=== PATIENT | female | born 1955 | race Caucasian/White ===

== ENCOUNTER 2018-06-19 12:49 | Inpatient (IN) ==
[2018-06-19] MEDS ORDERED: Sod Chloride 0.9% Inj 1,000 ML IV.SIG SCH (13:15)
--- NOTE | 2018-06-19 13:17 | ED ---
HPI General Chief Complaint: Fall Stated Complaint: Fall Time Seen by Provider: 06/19/18 12:56 Source: patient and EMS Mode of arrival: EMS Limitations: other (alcohol) History of Present Illness HPI Narrative: 62 yo female with a history of osteoporosis and alcohol use presents with a 12 hour history of left groin pain after a fall last night. Patient states she stepped outside her house and tripped on a rug on her patio, falling on her left side on tile floor. Patient took ibuprofen at night, applied ice to area and was able to sleep but awoke with 8/10 pain this morning. Pain exacerbated by movement of left leg, unable to bear weight. Some initial tingling and numbness running down left leg now resolved. Patient endorses drinking some alcohol last night prior to episode, "a couple vodka mixed drinks." Also had a drink this morning prior to presenting. States that she regularly drinks about 3 mixed drinks 5 days a week. She has a history of osteoporosis for which she takes Calcium supplements. Came by [facility] for evaluation of this. Related Data Home Medications Medication Instructions Recorded Confirmed multivitamin [Multiple Vitamins] 1 tab PO DAILY 06/19/18 06/19/18 Allergies Allergy/AdvReac Type Severity Reaction Status Date / Time No Known Allergies Allergy Verified 06/19/18 13:02 Review of Systems ROS: all other systems reviewed are negative Constitutional Denies fever(s) and Denies weakness Cardiovascular Denies chest pain, Denies syncope, Denies pedal edema and Denies leg edema Respiratory Denies dyspnea Gastrointestinal Denies abdominal pain Musculoskeletal Reports limited range of motion, Denies numbness, Reports radiating pain into limb and Denies tingling Neurologic Denies numbness Psychiatric Reports anxiety [facility] Medical History Medical History Osteoporosis (Acute) Surgical History Surgical History No history of previous surgery (Acute) Family History Family History Father Cancer Social History Social History Substance History: No History of Abuse Smoking Status: Heavy tobacco smoker Tobacco Type: Cigarettes How Often Do You Have a Drink Containing Alcohol: 4 or more times a week Recent Travel in [facility] within the Last 8 Weeks: No Recent Out of Country Travel within the Last 8 Weeks: No Immunization History Tetanus Immunization: Unsure Exam Const General: acute distress mild, anxious and intoxicated appearing Orientation: alert, awake and oriented x3 HENMT Head: normocephalic and atraumatic Nose: no nasal discharge and no epistaxis Mouth: moist mucous membranes Eyes Sclera: normal sclerae Pupils: PERRL Neck Neck: trachea midline and no JVD Resp Effort & Inspection: no use of accessory muscles Auscultation: clear to auscultation bilaterally Cardio Rate: regular rate Rhythm: regular rhythm Heart Sounds: no murmurs GI Inspection: non-distended Palpation: soft, no hepatosplenomegaly and nontender Skin General: dry skin (warm) Neuro General: alert and awake Cranial Nerves: other Speech: speech normal Motor: no movement abnormalities noted Extrem General: normal to inspection, no clubbing, no cyanosis and no edema Left lower extremity: hip/thigh Details: tenderness and abnormal ROM Details: pain with active ROM Details: with flexion Psych Mood: irritable mood Affect: irritable affect Judgment: judgment good Course Initial Documented Vital Signs Temperature 98.7 F 06/19/18 12:59 Pulse Rate 97 H 06/19/18 12:59 Respiratory Rate 16 06/19/18 12:59 Blood Pressure 181/127 H 06/19/18 12:59 Pulse Oximetry 97 06/19/18 12:59 Last Documented Vital Signs Temperature 98.7 F 06/19/18 12:59 Pulse Rate 87 06/19/18 13:42 Respiratory Rate 15 06/19/18 13:42 Blood Pressure 171/98 H 06/19/18 13:42 Pulse Oximetry 99 06/19/18 13:42 Medical Decision Making [facility] Narrative Medical decision making narrative: 62-year-old female that presents to the ED for evaluation of fall and alcohol intoxication. Patient was properly examined and was found to have signs and symptoms very concerning for fracture. Imaging and labs ordered. CIWA was started as patient does state having a very substantial history of alcohol use. Labs and imaging were essentially positive for alcohol as well as hip fracture. Case discussed with my attending who agrees with plan. Medical team was paged. Patient was admitted to Dr. Michel who agrees admission to her service. Consult placed to orthopedic surgeon. Medical Screen Exam Complete: Yes Emergency Medical Condition: Yes Differential Diagnosis Differential Diagnosis: Hip fracture versus bruise versus contusion versus alcohol intoxication versus inability to walk Medical Records Medical records reviewed: Yes I reviewed the patient's medical records. Lab Data Lab results reviewed: Yes I reviewed the patient's lab results. Result diagrams: 06/19/18 13:05 06/19/18 13:05 Lab Results 06/19/18 06/19/18 06/19/18 Range/Units 12:58 13:05 13:05 WBC 10.6 (4.0-11.0) th/mm3 RBC 4.67 (4.00-5.30) mil/mm3 Hgb 14.7 (11.6-15.3) gm/dL Hct 43.7 (35.0-46.0) % MCV 93.4 (80.0-100.0) fL MCH 31.5 (27.0-34.0) pg MCHC 33.8 (32.0-36.0) % RDW 14.2 (11.6-17.2) % Plt Count 271 (150-450) th/mm3 MPV 7.8 (7.0-11.0) fL Neut % (Auto) 73.0 H (16.0-70.0) % Lymph % (Auto) 19.0 (9.0-44.0) % [place] % (Auto) 7.3 (0.0-8.0) % Eos % (Auto) 0.2 (0.0-4.0) % Baso % (Auto) 0.5 (0.0-2.0) % Neut # (Auto) 7.8 H (1.8-7.7) th/mm3 Lymph # (Auto) 2.0 (1.0-4.8) th/mm3 [place] # (Auto) 0.8 (0.0-0.9) th/mm3 Eos # (Auto) 0.0 (0.0-0.4) th/mm3 Baso # (Auto) 0.0 (0.0-0.2) th/mm3 WBC Differential . Differential Comment Auto diff final PT 10.0 (9.8-11.6) sec INR 1.0 Ratio APTT 25.7 (24.3-30.1) sec POC Glucose 89 (68-110) mg/dl Urine Color (Yellw/Straw) Urine Clarity (Clear) Urine pH (5.0-8.5) Ur Specific [place] (1.002-1.035) Urine Protein (Neg-Trace) mg/dL Urine Glucose (UA) (Negative) mg/dL Urine Ketones (Negative) mg/dL Urine Occult Blood (Negative) Urine Nitrate (Negative) Urine Bilirubin (Negative) Urine Urobilinogen (Less than 2) mg/dL Ur Leukocyte Esterase (Negative) Urine WBC (0-5) /hpf Ur Squamous Epith Cells (0-5) /hpf Urine Bacteria (None) /hpf Micro UA Comment Ur Microscopic Review Urine Culture Comments 06/19/18 Range/Units 13:15 WBC (4.0-11.0) th/mm3 RBC (4.00-5.30) mil/mm3 Hgb (11.6-15.3) gm/dL Hct (35.0-46.0) % MCV (80.0-100.0) fL MCH (27.0-34.0) pg MCHC (32.0-36.0) % RDW (11.6-17.2) % Plt Count (150-450) th/mm3 MPV (7.0-11.0) fL Neut % (Auto) (16.0-70.0) % Lymph % (Auto) (9.0-44.0) % [place] % (Auto) (0.0-8.0) % Eos % (Auto) (0.0-4.0) % Baso % (Auto) (0.0-2.0) % Neut # (Auto) (1.8-7.7) th/mm3 Lymph # (Auto) (1.0-4.8) th/mm3 [place] # (Auto) (0.0-0.9) th/mm3 Eos # (Auto) (0.0-0.4) th/mm3 Baso # (Auto) (0.0-0.2) th/mm3 WBC Differential Differential Comment PT (9.8-11.6) sec INR Ratio APTT (24.3-30.1) sec POC Glucose (68-110) mg/dl Urine Color Straw (Yellw/Straw) Urine Clarity Clear (Clear) Urine pH 6.0 (5.0-8.5) Ur Specific [place] 1.001 L (1.002-1.035) Urine Protein Negative (Neg-Trace) mg/dL Urine Glucose (UA) Negative (Negative) mg/dL Urine Ketones Negative (Negative) mg/dL Urine Occult Blood Moderate H (Negative) Urine Nitrate Negative (Negative) Urine Bilirubin Negative (Negative) Urine Urobilinogen Less than 2 (Less than 2) mg/dL Ur Leukocyte Esterase Negative (Negative) Urine WBC Less than 1 (0-5) /hpf Ur Squamous Epith Cells <1 (0-5) /hpf Urine Bacteria Rare H (None) /hpf Micro UA Comment Culture not ind Ur Microscopic Review Not Reportable Urine Culture Comments Culture not ind Imaging Data Attestation: I personally reviewed and interpreted this imaging study as follows : Radiologist's impression: Chest X-Ray 06/19/18 12:57 CONCLUSION: 1. Mild interstitial prominence of unknown chronicity given lack of prior exams. 2. Otherwise, no acute abnormality. Hip X-Ray 06/19/18 12:57 CONCLUSION: 1. Left femoral intertrochanteric fracture. Discharge Plan Discharge Disposition Patient Disposition: 30 Still Patient Discharge Details Diagnosis: Closed hip fracture, Alcohol abuse Physicians Team ED Provider: Fan Ornelas ED Midlevel Provider: Vadim Govea Primary Care Provider: Primary Care Socorro Wood Other Providers: Beronica Michaels Rxs /Orders / Referrals /Forms Prescriptions: No Action multivitamin [Multiple Vitamins] Tablet 1 tab PO DAILY RF: 0 Discharge Interventions Interventions: Vital Signs Last Done: 06/19/18 13:42 Status ED Status: Admitted Patient
[2018-06-19 13:23] LABS: Baso % (Auto) 0.5 % (0.0-2.0); Eos % (Auto) 0.2 % (0.0-4.0); Hematocrit 43.7 % (35.0-46.0); Hemoglobin 14.7 gm/dL (11.6-15.3); Mean Corpuscular HGB Conc 33.8 % (32.0-36.0); Mean Corpuscular Hemoglobin 31.5 pg (27.0-34.0); Mean Corpuscular Volume 93.4 fL (80.0-100.0); Mean Platelet Volume 7.8 fL (7.0-11.0); Mono # (Auto) 0.8 th/mm3 (0.0-0.9); Mono % (Auto) 7.3 % (0.0-8.0); Neut # (Auto) 7.8 th/mm3 (1.8-7.7); Platelet Count 271 th/mm3 (150-450); Red Blood Count 4.67 mil/mm3 (4.00-5.30); Red Cell Distribution Width 14.2 % (11.6-17.2); White Blood Count 10.6 th/mm3 (4.0-11.0)
[2018-06-19 13:31] LABS: Activated Partial Thrombo Time 25.7 sec (24.3-30.1)
--- NOTE | 2018-06-19 13:40 | XR ---
EXAM DATE: 06/19/2018 12:57 PM EDT AGE/SEX: 62 years / Female INDICATIONS: Congestion CLINICAL DATA: This is the patient's initial encounter. Patient reports that signs and symptoms have been present for 1 day and indicates a pain score of 0/10. MEDICAL/SURGICAL HISTORY: None. None. COMPARISON: POI, XR SPINE THORACIC AP/LAT AND SWIMMERS, 07/07/2017. . FINDINGS: Mild diffuse interstitial prominence. No significant focal pleural or parenchymal opacities. The card iomediastinal contours are unremarkable. Healed left-sided rib fractures. Osseous structures are int act. CONCLUSION: 1. Mild interstitial prominence of unknown chronicity given lack of prior exams. 2. Otherwise, no acute abnormality. Electronically signed by: Jamal Rojas MD 06/19/2018 1:38 PM EDT
--- NOTE | 2018-06-19 13:41 | XR ---
EXAM DATE: 06/19/2018 12:57 PM EDT AGE/SEX: 62 years / Female INDICATIONS: Left hip pain, fell CLINICAL DATA: This is the patient's initial encounter. Patient reports that signs and symptoms have been present for 2 days and indicates a pain score of 8/10. MEDICAL/SURGICAL HISTORY: None. None. COMPARISON: No prior exams available for comparison. FINDINGS: Nondisplaced intertrochanteric fracture of the left femur. [id number] degenerative changes abou t the left hip. Joints are intact. Osseous density is normal. Soft tissues are unremarkable. No ra diopaque foreign bodies seen. CONCLUSION: 1. Left femoral intertrochanteric fracture. Electronically signed by: Jamal Rojas MD 06/19/2018 1:39 PM EDT
[2018-06-19] MEDS ORDERED: LORazepam 1 MG Tablet PO PRN (13:43)
[2018-06-19] MEDS ORDERED: Haloperidol Inj 5 MG/ML Ampul IV.PUSH PRN (13:43)
[2018-06-19 14:31] LABS: Bacteria,Urine Rare /hpf; Bilirubin,Urine Negative (Negative); Clarity,Urine Clear (Clear); Color,Urine Straw (Yellw/Straw); Glucose,Urine (UA) Negative (Negative); Leukocyte Esterase,Urine Negative (Negative); Nitrite,Urine Negative (Negative); Specific Gravity,Urine 1.001 (1.002-1.035); Squamous Epithelial Cell,Urine <1 /hpf (0-5)
[2018-06-19] MEDS ORDERED: Bisacodyl 10 MG Supp RECTAL PRN (14:59)
[2018-06-19] MEDS ORDERED: Acetaminophen 325 MG Tablet PO PRN (14:59)
[2018-06-19] MEDS ORDERED: Naloxone Inj 0.4 MG/ML Vial IV.PUSH PRN (14:59)
[2018-06-19] MEDS ORDERED: Sodium Chloride 0.9% 2 ML Flush PRN IV.FLUSH (15:08)
--- NOTE | 2018-06-19 15:40 | P.HPIM ---
[facility] No Primary Care Physician Chief Complaint: Left groan pain History of Present Illness: 62 year old white female with no significant past medical history presents to the ED with left groin pain with inability to ambulate after she sustained a mechanical fall after tripping outside on a rug while going outside to smoke a cigarette yesterday. She did not hit her head or lose consciousness and fell to her left side. Since the fall, she has not been able to ambulate and has had severe left groan pain. Prior to the fall, she has no previous complaints. She has no symptoms of chest pain or shortness of breath. She had no history of constipation or any blood in her stools. She has been relatively healthy up to this point. - Diagnosis (1) Closed intertrochanteric fracture of femur Review of Systems All other systems reviewed negative except as stated in HPI [facility] - History History Provided By: Family Member, Network Systems Consultant / EMT - Medical History Medical History: Medical History (Last Reviewed 06/19/18 @ 15:36 by Luiza Michel MD) Osteoporosis - Surgical History Surgical History: Surgical History (Last Reviewed 06/19/18 @ 15:36 by Luiza Michel MD) No history of previous surgery - Family History Family History: Family History (Last Updated 06/19/18 @ 15:37 by Luiza Michel MD) Father Cancer - Social History I have reviewed the patient's Social History: Yes - Tobacco History Tobacco Use In Past 30 Days: Yes Smoking Status: Heavy tobacco smoker Tobacco Type: Cigarettes Packs Per Day: 1.5 - Alcohol History How Often Do You Have a Drink Containing Alcohol: 4 or more times a week - Substance Use History Substance History: No History of Abuse - Travel History Recent Travel in the [facility] Within the Last 8 Weeks: No Recent Travel Out of the Country Within the Last 8 Weeks: No - Immunization History Tetanus Immunization: Unsure Medications and Allergies Active Medications: Active Medications Acetaminophen (Tylenol) 650 mg PO Q4H PRN PRN Reason: Temp > 100.4 Al Hydroxide/Mg Hydroxide (Milk Of Magnesia Liq) 30 ml PO Q12H PRN PRN Reason: Mild Constipation Bisacodyl (Dulcolax Supp) 10 mg RECTAL DAILY PRN PRN Reason: SEVERE CONSITIPATION Flumazenil (Romazecon Inj) 0.2 mg IV.PUSH Q1M PRN PRN Reason: OVERSEDATION Haloperidol Lactate (Haldol Inj) 1 mg IV.PUSH Q15M PRN PRN Reason: for severe agitation Sodium Chloride (Ns Inj) 1,000 mls @ 0 mls/hr IV.SIG BOLUS ALYCIA Last Infusion: 06/19/18 14:53 Dose: Infused Lactated Ringer's (Lr 1000 Ml Inj) 1,000 mls @ 50 mls/hr IV.CONT .Q20H ALYCIA Lactulose (Lactulose Liq) 30 ml PO DAILY PRN PRN Reason: SEVERE CONSITIPATION Lorazepam (Ativan Inj) 1 mg IV.PUSH Q4H PRN PRN Reason: for CIWA 8-10 Lorazepam (Ativan Inj) 2 mg IV.PUSH Q15M PRN PRN Reason: for CIWA > 20 Lorazepam (Ativan Inj) 2 mg IV.PUSH Q1H PRN PRN Reason: for CIWA 15-20 Lorazepam (Ativan Inj) 2 mg IV.PUSH Q2H PRN PRN Reason: for CIWA 11-14 Lorazepam (Ativan) 1 mg PO Q4H PRN PRN Reason: for CIWA 8-10 Lorazepam (Ativan) 2 mg PO Q2H PRN PRN Reason: for CIWA 11-14 Naloxone HCl (Narcan Inj) 0.4 mg IV.PUSH UNSCH PRN PRN Reason: SEE LABEL COMMENTS Ondansetron HCl (Zofran Inj) 4 mg IV.PUSH Q6H PRN PRN Reason: NAUSEA OR VOMITING Senna/Docusate Sodium (Arabella-Colace) 1 tab PO BID [facility] Sennosides (Senokot) 17.2 mg PO Q12H PRN PRN Reason: Moderate Constipation Sodium Chloride (Ns Flush) 2 ml IV.FLUSH BID ALYCIA Sodium Chloride (Ns Flush) 2 ml IV.FLUSH PRN PRN PRN Reason: FLUSH AFTER USING IV ACCESS Thiamine HCl (Vitamin B1) 100 mg PO BID [facility] Allergies Allergy/AdvReac Type Severity Reaction Status Date / Time No Known Allergies Allergy Verified 06/19/18 13:02 Home Medications Medication Instructions Recorded Confirmed Type multivitamin [Multiple Vitamins] 1 tab PO DAILY 06/19/18 06/19/18 History Exam Vital signs: Vital Signs 06/19/18 12:59 06/19/18 13:42 Temperature 98.7 F Pulse Rate 97 H 87 Respiratory Rate 16 15 Blood Pressure 181/127 H 171/98 H Pulse Oximetry 97 99 Intake & Output 06/18/18 06/19/18 06/19/18 18:59 06:59 18:59 Intake Total 1000 / 1000 Balance 1000 / 1000 Weight 49.895 kg Intake: IV 1000 / 1000 NS Inj 1,000 ML @ Wide Open IV. 1000 / 1000 SIG BOLUS ALYCIA Rx#:[id number] Narrative: GENERAL: Well-nourished thin white female no acute distress SKIN: Warm and dry. HEAD: Atraumatic. Normocephalic. EYES: Pupils equal and round. No scleral icterus. No injection or drainage. ENT: No nasal bleeding or discharge. Mucous membranes pink and moist. NECK: Trachea midline. No JVD. CARDIOVASCULAR: Regular rate and rhythm. RESPIRATORY: No accessory muscle use. Clear to auscultation. Breath sounds equal bilaterally. GASTROINTESTINAL: Abdomen soft, non-tender, nondistended. Hepatic and splenic margins not palpable. MUSCULOSKELETAL: Extremities without clubbing, cyanosis, or edema. Left lower extremity abducted and externally rotated NEUROLOGICAL: Awake and alert. No obvious cranial nerve deficits. Motor grossly within normal limits. Five out of 5 muscle strength in the arms Normal speech. PSYCHIATRIC: Appropriate mood and affect; insight and judgment normal. Results - Labs CBC & Chem 7: 06/19/18 13:05 06/19/18 13:05 Labs: Short CBC 06/19/18 Range/Units 13:05 WBC 10.6 (4.0-11.0) th/mm3 Hgb 14.7 (11.6-15.3) gm/dL Hct 43.7 (35.0-46.0) % Plt Count 271 (150-450) th/mm3 Urine 06/19/18 Range/Units 13:15 Urine Color Straw (Yellw/Straw) Urine Clarity Clear (Clear) Urine pH 6.0 (5.0-8.5) Ur Specific [place] 1.001 L (1.002-1.035) Urine Protein Negative (Neg-Trace) mg/dL Urine Glucose (UA) Negative (Negative) mg/dL - Imaging Impressions Chest X-Ray 06/19/18 12:57 CONCLUSION: 1. Mild interstitial prominence of unknown chronicity given lack of prior exams. 2. Otherwise, no acute abnormality. Hip X-Ray 06/19/18 12:57 CONCLUSION: 1. Left femoral intertrochanteric fracture. Caprini VTE Risk Assessment Caprini VTE Risk Assessment: Moderate/High Risk (score >= 2) Caprini Risk Assessment Model: Point Value = 1 Point Value = 2 Point Value = 3 Point Value = 5 Age 41-60 Minor surgery BMI > 25 kg/m2 Swollen legs Varicose veins or History of unexplained or recurrent spontaneous Oral contraceptives or hormone replacement Sepsis (< 1 month) Serious lung disease, including pneumonia (< 1 month) Abnormal pulmonary function Acute myocardial infarction Congestive heart failure (< 1 month) History of inflammatory bowel disease Medical patient at bed rest Age 61-74 Arthroscopic surgery Major open surgery (> 45 min) Laparoscopic surgery (> 45 min) Malignancy Confined to bed (> 72 hours) Immobilizing plaster cast Central venous access Age >= 75 History of VTE Family history of VTE Factor V Leiden Prothrombin [id number] Lupus anticoagulant Anticardiolipin antibodies Elevated serum homocysteine Heparin-induced thrombocytopenia Other congenital or acquired thrombophilia Stroke (< 1 month) Elective arthroplasty Hip, pelvis, or leg fracture Acute spinal cord injury (< 1 month) Prophylaxis Regimen: Total Risk Factor Score Risk Level Prophylaxis Regimen 0-1 Low Early ambulation 2 Moderate Order ONE of the following: *Sequential Compression Device (SCD) *Heparin 5000 units SQ BID 3-4 Higher Order ONE of the following medications: *Heparin 5000 units SQ TID *Enoxaparin/Lovenox 40 mg SQ daily (WT < 150 kg, CrCl > 30 mL/min) *Enoxaparin/Lovenox 30 mg SQ daily (WT < 150 kg, CrCl > 10-29 mL/min) *Enoxaparin/Lovenox 30 mg SQ BID (WT < 150 kg, CrCl > 30 mL/min) AND/OR *Sequential Compression Device (SCD) 5 or more Highest Order ONE of the following medications: *Heparin 5000 units SQ TID (Preferred with Epidurals) *Enoxaparin/Lovenox 40 mg SQ daily (WT < 150 kg, CrCl > 30 mL/min) *Enoxaparin/Lovenox 30 mg SQ daily (WT < 150 kg, CrCl > 10-29 mL/min) *Enoxaparin/Lovenox 30 mg SQ BID (WT < 150 kg, CrCl > 30 mL/min) AND *Sequential Compression Device (SCD) Assessment and Plan - Assessment (1) Closed intertrochanteric fracture of femur Code(s): S72.143A - Displaced intertrochanteric fracture of unspecified femur, initial encounter for closed fracture Status: Acute - Plan 62-year-old white female presents to emergency room after she sustained a fall 1. Left femur intertrochanteric fracture- pain control, supportive care. Orthopedic consult for surgical intervention. N.p.o. after midnight 2. Osteoporosisstart [place] 3. Tobacco abuse cessation counseling 4. Alcohol use dailymonitor for any signs and symptoms of withdrawal. CIWA 5. DVT prophylaxisSCD and right lower leg and start anticoagulation after surgical intervention.
[2018-06-19 17:02] LABS: Alanine Aminotransferase 20 U/L (10-53)
[2018-06-19] MEDS: Morphine Inj 4 MG/ML Vial IV.PUSH PRN ×2 (17:02→20:06)
[2018-06-19 17:04] LABS: Alkaline Phosphatase 116 U/L (45-117); Total Protein 7.5 g/dL (6.4-8.2)
[2018-06-19 17:11] LABS: Albumin 3.5 g/dL (3.4-5.0); Alcohol 8 mg/dL (0-5); Anion Gap 7 meq/L (5-15); Aspartate Aminotransferase 37 U/L (15-37); Blood Urea Nitrogen 5 mg/dL (7-18); Calcium 8.2 mg/dL (8.5-10.1); Chloride 107 meq/L (98-107); Glomerular Filtration Rate Greater Than 89 mL/min (>89); Glucose,Random 78 mg/dL (74-106); Potassium 4.3 meq/L (3.5-5.1); Sodium 139 meq/L (136-145)
--- NOTE | 2018-06-19 17:20 | P.CONOP ---
[facility] Orthopedics Consult Note - [facility] Consult date: 06/19/18 Chief complaint: left intratrochanteric fracture, alcohol abuse Narrative: 62 year old white female with no significant past medical history presents to the ED with left groin pain with inability to ambulate after she sustained a mechanical fall after tripping outside on a rug while going outside to smoke a cigarette yesterday. She did not hit her head or lose consciousness and fell to her left side. Since the fall, she has not been able to ambulate and has had severe left groan pain. Prior to the fall, she has no previous complaints. She has no symptoms of chest pain or shortness of breath. Patient does have history of osteoporosis along with alcohol abuse. Review of Systems Denies fevers, chills, nausea, vomiting. Denies cough, shortness of breath, chest pain or abdominal pain. Denies back pain, weakness, numbness or tingling. Denies change in urination or stool. Denies any change in vision, dizziness or throat pain. Reports left groin pain. 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 - Medical History Medical History: Medical History (Last Reviewed 06/19/18 @ 15:36 by Luiza Michel MD) Osteoporosis - Surgical History Surgical History: Surgical History (Last Reviewed 06/19/18 @ 15:36 by Luiza Michel MD) No history of previous surgery - Family History Family History: Family History (Last Updated 06/19/18 @ 15:37 by Luiza Michel MD) Father Cancer - Tobacco History Tobacco Use In Past 30 Days: Yes Smoking Status: Heavy tobacco smoker Tobacco Type: Cigarettes Packs Per Day: 1.5 - Alcohol History How Often Do You Have a Drink Containing Alcohol: 4 or more times a week - Substance Use History Substance History: No History of Abuse - Travel History Recent Travel in the [place] Within the Last 8 Weeks: No Recent Travel Out of the Country Within the Last 8 Weeks: No - Immunization History Tetanus Immunization: Unsure Medications and Allergies Active Medications: Active Medications Acetaminophen (Tylenol) 650 mg PO Q4H PRN PRN Reason: Temp > 100.4 Hydrocodone Bitart/Acetaminophen (Printer 5/325) 1 tab PO Q4H PRN PRN Reason: PAIN 1-5 Hydrocodone Bitart/Acetaminophen (Printer 10/325) 1 tab PO Q4H PRN PRN Reason: PAIN 6-10 Al Hydroxide/Mg Hydroxide (Milk Of Magnesia Liq) 30 ml PO Q12H PRN PRN Reason: Mild Constipation Bisacodyl (Dulcolax Supp) 10 mg RECTAL DAILY PRN PRN Reason: SEVERE CONSITIPATION Calcium/Vitamin D (Oscal With D 250/125 Mg) 1 tab PO BID [facility] Clonidine HCl (Catapres) 0.1 mg PO Q6H PRN PRN Reason: SBP > 180 OR DBP > 100 Flumazenil (Romazecon Inj) 0.2 mg IV.PUSH Q1M PRN PRN Reason: OVERSEDATION Haloperidol Lactate (Haldol Inj) 1 mg IV.PUSH Q15M PRN PRN Reason: for severe agitation Sodium Chloride (Ns Inj) 1,000 mls @ 0 mls/hr IV.SIG BOLUS [facility] Last Infusion: 06/19/18 14:53 Dose: Infused Lactated Ringer's (Lr 1000 Ml Inj) 1,000 mls @ 50 mls/hr IV.CONT .Q20H [facility] Last Admin: 06/19/18 15:43 Dose: 50 mls/hr Lactulose (Lactulose Liq) 30 ml PO DAILY PRN PRN Reason: SEVERE CONSITIPATION Lorazepam (Ativan Inj) 1 mg IV.PUSH Q4H PRN PRN Reason: for CIWA 8-10 Lorazepam (Ativan Inj) 2 mg IV.PUSH Q15M PRN PRN Reason: for CIWA > 20 Lorazepam (Ativan Inj) 2 mg IV.PUSH Q1H PRN PRN Reason: for CIWA 15-20 Lorazepam (Ativan Inj) 2 mg IV.PUSH Q2H PRN PRN Reason: for CIWA 11-14 Lorazepam (Ativan) 1 mg PO Q4H PRN PRN Reason: for CIWA 8-10 Lorazepam (Ativan) 2 mg PO Q2H PRN PRN Reason: for CIWA 11-14 Morphine Sulfate (Morphine Inj) 4 mg IV.PUSH Q3H PRN PRN Reason: BREAKTHROUGH PAIN 1-10 Last Admin: 06/19/18 17:02 Dose: 4 mg Naloxone HCl (Narcan Inj) 0.4 mg IV.PUSH UNSCH PRN PRN Reason: SEE LABEL COMMENTS Ondansetron HCl (Zofran Inj) 4 mg IV.PUSH Q6H PRN PRN Reason: NAUSEA OR VOMITING Senna/Docusate Sodium (Arabella-Colace) 1 tab PO BID [facility] Sennosides (Senokot) 17.2 mg PO Q12H PRN PRN Reason: Moderate Constipation Sodium Chloride (Ns Flush) 2 ml IV.FLUSH BID [facility] Sodium Chloride (Ns Flush) 2 ml IV.FLUSH PRN PRN PRN Reason: FLUSH AFTER USING IV ACCESS Thiamine HCl (Vitamin B1) 100 mg PO BID [facility] Allergies Allergy/AdvReac Type Severity Reaction Status Date / Time No Known Allergies Allergy Verified 06/19/18 13:02 Home Medications Medication Instructions Recorded Confirmed Type multivitamin [Multiple Vitamins] 1 tab PO DAILY 06/19/18 06/19/18 History Exam Vital signs: Vital Signs 06/19/18 12:59 06/19/18 13:42 06/19/18 15:56 Temperature 98.7 F Pulse Rate 97 H 87 86 Respiratory Rate 16 15 17 Blood Pressure 181/127 H 171/98 H 181/94 H Pulse Oximetry 97 99 94 L 06/19/18 16:30 Temperature 98.2 F Pulse Rate 90 Respiratory Rate 16 Blood Pressure 186/95 H Pulse Oximetry 95 Intake & Output 06/18/18 06/19/18 06/19/18 18:59 06:59 18:59 Intake Total 1000 / 1000 Balance 1000 / 1000 Weight 49.895 kg Intake: IV 1000 / 1000 NS Inj 1,000 ML @ Wide Open IV. 1000 / 1000 SIG BOLUS [facility] Rx#:[id number] Narrative: Awake, alert, no acute distress Normocephalic Pupils equal No JVD Moist mucous members Nontender abdomen Nonlabored respirations Regular rate Left lower extremity: Positive logroll. Unable to assess hip and knee range of motion due to pain. Patient demonstrates positive EHL, FHL, dorsiflexion and plantarflexion. Sensation appears intact. Brisk cap refill. Bilateral upper extremities and right lower extremity: No significant tenderness palpation of visible deformities. Full active range of motion and strength throughout. Sensation intact. Brisk cap refill. No rash Normal affect Results - Labs Result Diagrams: 06/19/18 13:05 06/19/18 16:00 Labs: Laboratory Results - last 24 hr 06/19/18 06/19/18 06/19/18 12:58 13:05 13:05 WBC 10.6 RBC 4.67 Hgb 14.7 Hct 43.7 MCV 93.4 MCH 31.5 MCHC 33.8 RDW 14.2 Plt Count 271 MPV 7.8 Neut % (Auto) 73.0 H Lymph % (Auto) 19.0 [place] % (Auto) 7.3 Eos % (Auto) 0.2 Baso % (Auto) 0.5 Neut # (Auto) 7.8 H Lymph # (Auto) 2.0 [place] # (Auto) 0.8 Eos # (Auto) 0.0 Baso # (Auto) 0.0 WBC Differential . Differential Comment Auto diff final PT 10.0 INR 1.0 APTT 25.7 Sodium Potassium Chloride Carbon Dioxide Anion Gap BUN Creatinine Estimated GFR POC Glucose 89 Random Glucose Calcium Total Bilirubin AST ALT Alkaline Phosphatase Total Protein Albumin Urine Color Urine Clarity Urine pH Ur Specific [place] Urine Protein Urine Glucose (UA) Urine Ketones Urine Occult Blood Urine Nitrate Urine Bilirubin Urine Urobilinogen Ur Leukocyte Esterase Urine WBC Ur Squamous Epith Cells Urine Bacteria Micro UA Comment Ur Microscopic Review Urine Culture Comments Serum Alcohol 06/19/18 06/19/18 13:15 16:00 WBC RBC Hgb Hct MCV MCH MCHC RDW Plt Count MPV Neut % (Auto) Lymph % (Auto) [place] % (Auto) Eos % (Auto) Baso % (Auto) Neut # (Auto) Lymph # (Auto) [place] # (Auto) Eos # (Auto) Baso # (Auto) WBC Differential Differential Comment PT INR APTT Sodium 139 Potassium 4.3 Chloride 107 Carbon Dioxide 25.0 Anion Gap 7 BUN 5 L Creatinine 0.66 Estimated GFR Greater than 89 POC Glucose Random Glucose 78 Calcium 8.2 L Total Bilirubin 0.9 AST 37 ALT 20 Alkaline Phosphatase 116 Total Protein 7.5 Albumin 3.5 Urine Color Straw Urine Clarity Clear Urine pH 6.0 Ur Specific [place] 1.001 L Urine Protein Negative Urine Glucose (UA) Negative Urine Ketones Negative Urine Occult Blood Moderate H Urine Nitrate Negative Urine Bilirubin Negative Urine Urobilinogen Less than 2 Ur Leukocyte Esterase Negative Urine WBC Less than 1 Ur Squamous Epith Cells <1 Urine Bacteria Rare H Micro UA Comment Culture not ind Ur Microscopic Review Not Reportable Urine Culture Comments Culture not ind Serum Alcohol 8 H - Diagnostic results Imaging: Impressions Chest X-Ray 06/19/18 12:57 CONCLUSION: 1. Mild interstitial prominence of unknown chronicity given lack of prior exams. 2. Otherwise, no acute abnormality. Hip X-Ray 06/19/18 12:57 CONCLUSION: 1. Left femoral intertrochanteric fracture. Assessment and Plan - Assessment and Plan 62-year-old female with closed left intertrochanteric femur fracture. Options of management were discussed with the patient after reviewing radiographs. I discussed with the patient that given she does have an intertrochanteric femur fracture, I would not recommend nonoperative management as this would predispose her to multiple medical problems including blood clots , pneumonia, skin breakdown and possible ulcers, and urinary infections. Recommend patient for surgical intervention in the form of intramedullary nail of her left intertrochanteric femur fracture. Risks including but not limited to: Infection, nonunion or malunion, hardware malposition or failure, neurovascular injury, persistent hip pain and/or stiffness, possible need for further surgery, and other unforeseen comp occasions were all discussed with the patient. At this time she has consented to the above-mentioned procedure. Patient will be made n.p.o. at midnight with plan for surgery likely tomorrow. Postoperative course was discussed with the patient. I did explain to the patient that she likely will be limited to at least partial weightbearing initially. I did explain to the patient that these fractures typically take up to 3 months to fully heal. I also counseled the patient on smoking cessation and the effects of nicotine on fracture healing and surgery.
[2018-06-19] MEDS: Calcium/Vitamin D 250/125 MG Tablet PO SCH (20:06)
[2018-06-19] MEDS: Senna/Docusate Sodium 8.6/50 MG Tablet PO SCH (20:06)
[2018-06-19] MEDS: Sodium Chloride 0.9% 2 ML Flush BID IV.FLUSH SCH (20:07)
[2018-06-19] MEDS ORDERED: Sodium Chlor 0.9% Inj 500 ML IV.SIG SCH (23:45)
[2018-06-19] MEDS ORDERED: Chlorhexidine Gluconate 2% 1 Pack (2 Cloths) TOPICAL ONE (23:57)
[2018-06-19] MEDS ORDERED: Metoprolol Tartrate 25 MG Tablet PO ONE (23:57)
[2018-06-20] MEDS: Calcium/Vitamin D 250/125 MG Tablet PO SCH ×2 (09:02→20:06)
[2018-06-20] MEDS: Sodium Chloride 0.9% 2 ML Flush BID IV.FLUSH SCH (09:02)
[2018-06-20] MEDS: Senna/Docusate Sodium 8.6/50 MG Tablet PO SCH ×2 (09:02→20:06)
[2018-06-20] MEDS ORDERED: Famotidine PF Inj 20 MG/2 ML Vial ONE (09:08)
[2018-06-20] MEDS ORDERED: fentaNYL Citrate Inj 100 MCG/2 ML Ampul ONE (09:08)
[2018-06-20] MEDS ORDERED: ceFAZolin 2 GM Premix Inj 2 GM/50 ML PIGGYBACK IV.SIG ONE (09:24)
[2018-06-20] MEDS ORDERED: Tranexamic Acid Inj 1,000 MG/10 ML Ampul ONE (09:29)
--- NOTE | 2018-06-20 09:34 | P.PN ---
Subjective Interval history: Patient doing well overnight. N.p.o. since midnight. No overnight events per RN. Physical Exam Vital signs: Vital Signs 06/19/18 12:59 06/19/18 13:42 06/19/18 15:56 Temperature 98.7 F Pulse Rate 97 H 87 86 Respiratory Rate 16 15 17 Blood Pressure 181/127 H 171/98 H 181/94 H Pulse Oximetry 97 99 94 L 06/19/18 16:30 06/19/18 17:04 06/19/18 20:00 Temperature 98.2 F 98.1 F Pulse Rate 90 87 Respiratory Rate 16 18 18 Blood Pressure 186/95 H 168/87 H Pulse Oximetry 95 93 L 06/20/18 00:00 06/20/18 01:50 06/20/18 04:00 Temperature 98.2 F 97.8 F Pulse Rate 94 H 86 Respiratory Rate 20 16 Blood Pressure 173/99 H 155/78 H 165/91 H Pulse Oximetry 93 L 94 L 06/20/18 08:57 Temperature 97.2 F L Pulse Rate 96 H Respiratory Rate 18 Blood Pressure 189/94 H Pulse Oximetry 95 Intake & Output 06/19/18 06/20/18 06/20/18 18:59 06:59 18:59 Intake Total 1480 / 1480 Balance 1480 / 1480 Weight 49.89 kg Intake: IV 1000 / 1000 NS Inj 1,000 ML @ Wide Open IV. 1000 / 1000 SIG BOLUS [facility] Rx#:[id number] Oral 480 / 480 Other: # Voids 2 2 Date of Last Bowel Movement 06/18/18 06/18/18 06/18/18 # Bowel Movements 0 Weight On Admission 49.89 kg Narrative: GENERAL: Well-nourished female, in NAD, lying comfortably in bed SKIN: Warm and dry. HEENT: Normocephalic. Atraumatic. No scleral icterus. No injection or drainage. MOM. NECK: Supple, trachea midline. No JVD or lymphadenopathy. CARDIOVASCULAR: Regular rate and rhythm without murmurs, gallops, or rubs. RESPIRATORY: CTA x2 GASTROINTESTINAL: Abdomen soft, non-tender, nondistended. MUSCULOSKELETAL: No cyanosis, or edema. BACK: Nontender without obvious deformity. No CVA tenderness. EXT: Unable to assess L hip and knee range of motion due to pain. Left hip with external rotation. R LE stregth 01/08. NEURO: No focal deficits Results - Labs CBC & Chem 7: 06/19/18 13:05 06/19/18 16:00 Laboratory Results - last 24 hr 06/19/18 06/19/18 06/19/18 12:58 13:05 13:05 WBC 10.6 RBC 4.67 Hgb 14.7 Hct 43.7 MCV 93.4 MCH 31.5 MCHC 33.8 RDW 14.2 Plt Count 271 MPV 7.8 Neut % (Auto) 73.0 H Lymph % (Auto) 19.0 [place] % (Auto) 7.3 Eos % (Auto) 0.2 Baso % (Auto) 0.5 Neut # (Auto) 7.8 H Lymph # (Auto) 2.0 [place] # (Auto) 0.8 Eos # (Auto) 0.0 Baso # (Auto) 0.0 WBC Differential . Differential Comment Auto diff final PT 10.0 INR 1.0 APTT 25.7 Sodium Potassium Chloride Carbon Dioxide Anion Gap BUN Creatinine Estimated GFR POC Glucose 89 Random Glucose Calcium Total Bilirubin AST ALT Alkaline Phosphatase Total Protein Albumin Urine Color Urine Clarity Urine pH Ur Specific [place] Urine Protein Urine Glucose (UA) Urine Ketones Urine Occult Blood Urine Nitrate Urine Bilirubin Urine Urobilinogen Ur Leukocyte Esterase Urine WBC Ur Squamous Epith Cells Urine Bacteria Micro UA Comment Ur Microscopic Review Urine Culture Comments Serum Alcohol 06/19/18 06/19/18 13:15 16:00 WBC RBC Hgb Hct MCV MCH MCHC RDW Plt Count MPV Neut % (Auto) Lymph % (Auto) [place] % (Auto) Eos % (Auto) Baso % (Auto) Neut # (Auto) Lymph # (Auto) [place] # (Auto) Eos # (Auto) Baso # (Auto) WBC Differential Differential Comment PT INR APTT Sodium 139 Potassium 4.3 Chloride 107 Carbon Dioxide 25.0 Anion Gap 7 BUN 5 L Creatinine 0.66 Estimated GFR Greater than 89 POC Glucose Random Glucose 78 Calcium 8.2 L Total Bilirubin 0.9 AST 37 ALT 20 Alkaline Phosphatase 116 Total Protein 7.5 Albumin 3.5 Urine Color Straw Urine Clarity Clear Urine pH 6.0 Ur Specific [place] 1.001 L Urine Protein Negative Urine Glucose (UA) Negative Urine Ketones Negative Urine Occult Blood Moderate H Urine Nitrate Negative Urine Bilirubin Negative Urine Urobilinogen Less than 2 Ur Leukocyte Esterase Negative Urine WBC Less than 1 Ur Squamous Epith Cells <1 Urine Bacteria Rare H Micro UA Comment Culture not ind Ur Microscopic Review Not Reportable Urine Culture Comments Culture not ind Serum Alcohol 8 H - Imaging Impressions Chest X-Ray 06/19/18 12:57 CONCLUSION: 1. Mild interstitial prominence of unknown chronicity given lack of prior exams. 2. Otherwise, no acute abnormality. Hip X-Ray 06/19/18 12:57 CONCLUSION: 1. Left femoral intertrochanteric fracture. Assessment and Plan - Assessment (1) Closed intertrochanteric fracture of femur Code(s): S72.143A - Displaced intertrochanteric fracture of unspecified femur, initial encounter for closed fracture Status: Acute - Plan 62-year-old CM presents to emergency room after she sustained a fall, per imaging found to have a left femoral fracture, plan for surgical intervention per Ortho, HD #2 1. Left Femur Intertrochanteric Fracture Per Ortho plan on 06/19, plan for surgery today Pain control and supportive care NPO since midnight 2. Osteoporosis Cont. Os-[place] BID 3. Tobacco Abuse Cessation counseling with risks discussed today 4. Hx of Alcohol Abuse Continue Thiamine and Multivitamin No signs of withdrawal Cont. to monitor CIWA protocol 5. DVT prophylaxis: SCD's 6. Dispo: Plan for surgery this AM Code Status: full Discussed Condition With: patient, RN, CM
[2018-06-20] MEDS ORDERED: Ketamine Inj 50 MG/5 ML Syringe IV.PUSH ONE (09:37)
[2018-06-20] MEDS ORDERED: Glycopyrrolate Inj 1 MG/5 ML Syringe IV.PUSH ONE (10:25)
[2018-06-20] MEDS ORDERED: Lidocaine PF 1% Inj 5 ML Syringe OTHER ONE (10:25)
[2018-06-20] MEDS ORDERED: Zolpidem Tartrate 5 MG Tablet PO PRN (10:38)
[2018-06-20] MEDS ORDERED: Bisacodyl 10 MG Supp RECTAL PRN (10:38)
[2018-06-20] MEDS ORDERED: Promethazine 25 MG Supp RECTAL PRN (10:38)
[2018-06-20] MEDS ORDERED: Post-op Orders (for Pharmacy) OTHER STA (10:38)
[2018-06-20] MEDS ORDERED: Tranexamic Acid Inj 1,000 MG in Sodium Chlor 0.9% Inj 100 ML IV.SIG SCH ×2 (11:11→12:00)
--- NOTE | 2018-06-20 11:36 | XR ---
EXAM DATE: 06/20/2018 12:00 AM EDT AGE/SEX: 62 years / Female INDICATIONS: ORIF left hip fracture. CLINICAL DATA: This is the patient's subsequent encounter. Patient reports that signs and symptoms h ave been present for 1 day and indicates a pain score of Nonresponsive. MEDICAL/SURGICAL HISTORY: Non-responsive. Non-responsive. COMPARISON: No prior exams available for comparison. FINDINGS: 4 spot intraoperative fluoroscopic views of the left hip demonstrate antegrade intramedullary natalia and femoral neck now fixation hardware placement. CONCLUSION: Postoperative changes. Electronically signed by: Alfredo Chawla MD 06/20/2018 11:34 AM EDT
--- NOTE | 2018-06-20 11:41 | MP ---
cc: Dakota Govea MD DATE OF OPERATION: PREOPERATIVE DIAGNOSIS: Left intertrochanteric hip fracture. POSTOPERATIVE DIAGNOSIS: Left intertrochanteric hip fracture. PROCEDURE PERFORMED: Intramedullary nailing, left intertrochanteric hip fracture. SURGEON: Dakota Govea MD PROJECT DRILLING ENGINEER: TORY Hercules. ANESTHESIA: General. ESTIMATED BLOOD LOSS: 100 mL SPECIMENS REMOVED: None. IMPLANTS: Two Synthes. INDICATIONS: The patient is a 62-year-old female who fell sustaining a left displaced intertrochanteric hip fracture. She presents to [facility] Emergency Room. X-rays confirmed the above-named findings. Orthopedic surgery consulted. I did evaluate the patient at the bedside and discussed with her, her diagnosis as well as treatment options including the option of nonoperative treatment versus surgery. Surgery would consist placement of a left trochanteric femoral nail within the intramedullary canal of the femur. The risks of surgery were discussed, which include, but are not limited to anesthesia, bleeding, infection, damage to nerves and blood vessels, pain, stiffness, failure of hardware, blood clots, pulmonary embolism, and even . The patient's pain is severe. He favored the benefits over the risks. He did wish to proceed with surgery. PROCEDURE IN DETAIL: Written consent was obtained. The patient was identified by name, taken to the operating room and placed supine on the operating table; general anesthesia was administered, as well as 2 grams of Ancef, 1 gram of IV vancomycin. The left foot was placed in a well-padded traction boot. The right leg was placed in a well-padded leg rodriguez. Longitudinal traction was applied to the left lower extremity. Fluoroscopic imaging assisted with preliminary reduction of the fracture. At this point, the left hip and left lower extremity was then prepped and draped using isopropyl alcohol, Hibiclens solution and ChloraPrep solution. After a timeout was performed, a longitudinal incision was made over the lateral aspect of the right hip. The fascial layer was incised. A guidewire was used and entered into the intramedullary canal of the femur. This Was followed by a cannulated entry reamer. Subsequently, a Synthes 10 mm trochanteric femoral nail was inserted into the intramedullary canal of the femur. The 130 degree locking jig was used to place a guide pin centered in the femoral head on the AP and lateral fluoroscopic projections. This was followed by placement of an 85 mm spiral blade. The top locking screw was then secured to create a fixed angle sliding construct. Distally, the locking jig was used to place a single lateral to medial transverse static locking screw. Fluoroscopic imaging again confirmed hardware placement fracture reduction. The wound was thoroughly irrigated with sterile saline solution. The fascia was closed with #1 Vicryl suture, subcutaneous layer with 2-0 Vicryl suture. Skin was closed with Dermabond. Sterile dressing applied. The patient tolerated the procedure well. No intraoperative complications noted. Pete Fountain, Physician Machine Scallop Cutter-Certified was present for the entire procedure to include patient positioning and the procedure itself. The medical necessity of the physician fitness assistant was indicated in this case due to the complexity of the procedure. He assisted with appropriate manipulation of the fracture. He was assisted both achieving and maintaining fracture reduction along with implantation of the internal fixation device. MD HAILY Boggs/calixto , 11:20 AM , 11:28 AM
--- NOTE | 2018-06-20 13:57 | ECG ---
Date Performed: 06/19/2018 Time Performed: 21:24:05 PTAGE: 62 years EKG: Sinus rhythm NORMAL ECG NO PREVIOUS TRACING DOCTOR: Urban Asher Interpretating Date/Time 06/20/2018 13:56:55
[2018-06-20] MEDS: ceFAZolin Inj 2,000 MG in Sodium Chlor 0.9% Inj 80 ML IV.SIG SCH (17:34)
--- NOTE | 2018-06-20 21:53 | P.PN ---
Subjective Interval history: NOt seen Physical Exam Vital signs: Vital Signs 06/20/18 00:00 06/20/18 01:50 06/20/18 04:00 Temperature 98.2 F 97.8 F Pulse Rate 94 H 86 Respiratory Rate 20 16 Blood Pressure 173/99 H 155/78 H 165/91 H Pulse Oximetry 93 L 94 L 06/20/18 08:57 06/20/18 11:30 06/20/18 11:45 Temperature 97.2 F L 96.9 F L Pulse Rate 96 H 100 H 96 H Respiratory Rate 18 11 L 14 Blood Pressure 189/94 H 128/76 144/86 H Pulse Oximetry 95 99 99 06/20/18 12:00 06/20/18 12:14 06/20/18 16:00 Temperature 97.5 F L 97.6 F 97.6 F Pulse Rate 96 H 90 83 Respiratory Rate 17 16 16 Blood Pressure 162/75 H 169/93 H 119/70 Pulse Oximetry 99 95 92 L 06/20/18 19:48 Temperature 97.2 F L Pulse Rate 89 Respiratory Rate 18 Blood Pressure 148/82 H Pulse Oximetry 95 Intake & Output 06/20/18 06/20/18 06/21/18 06:59 18:59 06:59 Intake Total 3750 / 3750 Output Total 50 / 50 Balance 3700 / 3700 Intake: IV 1380 / 1380 LR 1000 mL Inj 1,000 ML @ 50 1000 / 1000 mls/hr IV.CONT .Q20H [facility] Rx#: [id number] LR 1000 mL Inj 1,000 ML @ 30 120 / 120 mls/hr IV.SIG .Q24H [facility] Rx#: [id number] Cyklokapron Inj 1,000 MG In NS 110 / 110 Inj 100 ML @ 200 mls/hr IV.SIG ONCE [facility] Rx#:[id number] Ancef 2 GM Premix Inj 2 gm In 50 / 50 50 ml @ 0 mls/hr IV.SIG .STK- [facility] Rx#:[id number] Ancef Inj 2,000 MG In NS Inj 80 100 / 100 ML @ 200 mls/hr IV.SIG Q8H [facility] Rx#:[id number] Oral 720 / 720 Anesthesia Amount 1650 / 1650 Output: Estimated Blood Loss 50 / 50 Other: # Voids 2 5 Date of Last Bowel Movement 10/06/18/18 06/18/18 # Bowel Movements 0 Narrative: GENERAL: Well-nourished female, in NAD, lying comfortably in bed SKIN: Warm and dry. HEENT: Normocephalic. Atraumatic. No scleral icterus. No injection or drainage. MOM. NECK: Supple, trachea midline. No JVD or lymphadenopathy. CARDIOVASCULAR: Regular rate and rhythm without murmurs, gallops, or rubs. RESPIRATORY: CTA x2 GASTROINTESTINAL: Abdomen soft, non-tender, nondistended. MUSCULOSKELETAL: No cyanosis, or edema. BACK: Nontender without obvious deformity. No CVA tenderness. EXT: Unable to assess L hip and knee range of motion due to pain. Left hip with external rotation. R EDMOND betancourt 01/08. NEURO: No focal deficits Results - Labs CBC & Chem 7: 06/19/18 13:05 06/19/18 16:00 - Imaging Impressions ITS Impressions Chest X-Ray 06/19/18 12:57 CONCLUSION: 1. Mild interstitial prominence of unknown chronicity given lack of prior exams. 2. Otherwise, no acute abnormality. Hip X-Ray 06/20/18 00:00 CONCLUSION: Postoperative changes. - Procedures Left intertrochanteric femur fracture repair Assessment and Plan - Assessment (1) Closed intertrochanteric fracture of femur Code(s): S72.143A - Displaced intertrochanteric fracture of unspecified femur, initial encounter for closed fracture Status: Acute - Plan 62-year-old CM presents to emergency room after she sustained a fall, per imaging found to have a left femoral fracture 1. Left Femur Intertrochanteric Fracture Per Ortho plan on 06/19, plan for surgery today Pain control and supportive care NPO since midnight 2. Osteoporosis Cont. Os-[place] BID 3. Tobacco Abuse Cessation counseling with risks discussed today 4. Hx of Alcohol Abuse Continue Thiamine and Multivitamin No signs of withdrawal Cont. to monitor CIWA protocol 5. DVT prophylaxis: SCD's and Lovenox 6. Dispo: Dc per ortho surgery t
[2018-06-20] MEDS: Morphine Inj 4 MG/ML Vial IV.PUSH PRN (22:24)
[2018-06-21] MEDS: ceFAZolin Inj 2,000 MG in Sodium Chlor 0.9% Inj 80 ML IV.SIG SCH ×2 (01:51→10:32)
[2018-06-21 07:18] LABS: Baso % (Auto) 0.2 % (0.0-2.0); Eos % (Auto) 0.1 % (0.0-4.0); Hematocrit 40.4 % (35.0-46.0); Hemoglobin 13.2 gm/dL (11.6-15.3); Lymph # (Auto) 0.9 th/mm3 (1.0-4.8); Lymph % (Auto) 9.2 % (9.0-44.0); Mean Corpuscular HGB Conc 32.7 % (32.0-36.0); Mean Corpuscular Hemoglobin 31.1 pg (27.0-34.0); Mean Corpuscular Volume 95.2 fL (80.0-100.0); Mean Platelet Volume 8.5 fL (7.0-11.0); Mono # (Auto) 0.8 th/mm3 (0.0-0.9); Mono % (Auto) 8.2 % (0.0-8.0); Neut # (Auto) 7.8 th/mm3 (1.8-7.7); Neut % (Auto) 82.3 % (16.0-70.0); Platelet Count 227 th/mm3 (150-450); Red Blood Count 4.24 mil/mm3 (4.00-5.30); Red Cell Distribution Width 14.1 % (11.6-17.2); White Blood Count 9.4 th/mm3 (4.0-11.0)
[2018-06-21 07:58] LABS: Alanine Aminotransferase 13 U/L (10-53); Albumin 2.8 g/dL (3.4-5.0); Alkaline Phosphatase 84 U/L (45-117); Anion Gap 9 meq/L (5-15); Aspartate Aminotransferase 12 U/L (15-37); Blood Urea Nitrogen 9 mg/dL (7-18); Calcium 9.3 mg/dL (8.5-10.1); Carbon Dioxide 28.2 meq/L (21.0-32.0); Chloride 104 meq/L (98-107); Glomerular Filtration Rate 78 mL/min (>89); Glucose,Random 105 mg/dL (74-106); Potassium 3.8 meq/L (3.5-5.1); Sodium 141 meq/L (136-145); Total Protein 6.4 g/dL (6.4-8.2)
--- NOTE | 2018-06-21 08:13 | P.PNOP ---
Subjective Interval history: pain controlled. Physical Exam Vital signs: Vital Signs 06/20/18 08:57 06/20/18 11:30 06/20/18 11:45 Temperature 97.2 F L 96.9 F L Pulse Rate 96 H 100 H 96 H Respiratory Rate 18 11 L 14 Blood Pressure 189/94 H 128/76 144/86 H Pulse Oximetry 95 99 99 06/20/18 12:00 06/20/18 12:14 06/20/18 16:00 Temperature 97.5 F L 97.6 F 97.6 F Pulse Rate 96 H 90 83 Respiratory Rate 17 16 16 Blood Pressure 162/75 H 169/93 H 119/70 Pulse Oximetry 99 95 92 L 06/20/18 19:48 06/20/18 23:37 Temperature 97.2 F L 98 F Pulse Rate 89 84 Respiratory Rate 18 16 Blood Pressure 148/82 H 145/74 H Pulse Oximetry 95 93 L Intake & Output 06/20/18 06/21/18 06/21/18 18:59 06:59 18:59 Intake Total 3750 / 3750 1100 / 1100 Output Total 50 / 50 Balance 3700 / 3700 1100 / 1100 Intake: IV 1380 / 1380 1100 / 1100 LR 1000 mL Inj 1,000 ML @ 100 1000 / 1000 1000 / 1000 mls/hr IV.CONT .Q10H [facility] Rx#: [id number] LR 1000 mL Inj 1,000 ML @ 30 120 / 120 mls/hr IV.SIG .Q24H [facility] Rx#: [id number] Cyklokapron Inj 1,000 MG In NS 110 / 110 Inj 100 ML @ 200 mls/hr IV.SIG ONCE [facility] Rx#:[id number] Ancef 2 GM Premix Inj 2 gm In 50 / 50 50 ml @ 0 mls/hr IV.SIG .STK- MED ONE Rx#:[id number] Ancef Inj 2,000 MG In NS Inj 80 100 / 100 100 / 100 ML @ 200 mls/hr IV.SIG Q8H [facility] Rx#:[id number] Oral 720 / 720 Anesthesia Amount 1650 / 1650 Output: Estimated Blood Loss 50 / 50 Other: # Voids 5 3 Date of Last Bowel Movement 06/18/18 06/18/18 # Bowel Movements 0 Narrative: in bed, nad dressing c/d/i thigh soft neg homans nvi Results - Labs CBC & Chem 7: 06/21/18 04:54 06/21/18 04:54 Laboratory Results - last 24 hr 06/21/18 06/21/18 04:54 04:54 WBC 9.4 RBC 4.24 Hgb 13.2 Hct 40.4 MCV 95.2 MCH 31.1 MCHC 32.7 RDW 14.1 Plt Count 227 MPV 8.5 Neut % (Auto) 82.3 H Lymph % (Auto) 9.2 [place] % (Auto) 8.2 H Eos % (Auto) 0.1 Baso % (Auto) 0.2 Neut # (Auto) 7.8 H Lymph # (Auto) 0.9 L [place] # (Auto) 0.8 Eos # (Auto) 0.0 Baso # (Auto) 0.0 WBC Differential . Differential Comment Auto diff final Sodium 141 Potassium 3.8 Chloride 104 Carbon Dioxide 28.2 Anion Gap 9 BUN 9 Creatinine 0.75 Estimated GFR 78 L Random Glucose 105 Calcium 9.3 D Total Bilirubin 0.4 AST 12 L ALT 13 Alkaline Phosphatase 84 Total Protein 6.4 D Albumin 2.8 L D - Imaging Impressions Hip X-Ray 06/20/18 00:00 CONCLUSION: Postoperative changes. - Procedures Left intertrochanteric femur fracture repair Assessment and Plan - Ortho Post Op Day # 1 - Assessment and Plan s/p L Troch Nail POD#1 50% PWB ok to maintain dressing unless saturated lovenox d/c planning home vs snf f/up dr. briones 2 weeks
[2018-06-21] MEDS: Senna/Docusate Sodium 8.6/50 MG Tablet PO SCH ×2 (10:33→21:55)
[2018-06-21] MEDS: Multivitamin/Minerals Therapeutic Tablet PO SCH (10:33)
[2018-06-21] MEDS: Folic Acid 1 MG Tablet PO SCH (10:33)
[2018-06-21] MEDS: Calcium/Vitamin D 250/125 MG Tablet PO SCH ×2 (10:33→21:55)
--- NOTE | 2018-06-21 11:56 | P.PN ---
Subjective Interval history: Follow-up ortho injury. States she is doing better ambulated in the hallway with 50% partial weightbearing left lower extremity. Physical Exam Vital signs: Vital Signs 06/20/18 12:00 06/20/18 12:14 06/20/18 16:00 Temperature 97.5 F L 97.6 F 97.6 F Pulse Rate 96 H 90 83 Respiratory Rate 17 16 16 Blood Pressure 162/75 H 169/93 H 119/70 Pulse Oximetry 99 95 92 L 06/20/18 19:48 06/20/18 23:37 06/21/18 08:00 Temperature 97.2 F L 98 F 97.6 F Pulse Rate 89 84 70 Respiratory Rate 18 16 18 Blood Pressure 148/82 H 145/74 H 150/77 H Pulse Oximetry 95 93 L 94 L Intake & Output 06/20/18 06/21/18 06/21/18 18:59 06:59 18:59 Intake Total 3750 / 3750 1100 / 1100 Output Total 50 / 50 Balance 3700 / 3700 1100 / 1100 Intake: IV 1380 / 1380 1100 / 1100 LR 1000 mL Inj 1,000 ML @ 100 1000 / 1000 1000 / 1000 mls/hr IV.CONT .Q10H [facility] Rx#: [id number] LR 1000 mL Inj 1,000 ML @ 30 120 / 120 mls/hr IV.SIG .Q24H [facility] Rx#: [id number] Cyklokapron Inj 1,000 MG In NS 110 / 110 Inj 100 ML @ 200 mls/hr IV.SIG ONCE [facility] Rx#:[id number] Ancef 2 GM Premix Inj 2 gm In 50 / 50 50 ml @ 0 mls/hr IV.SIG .STK- [facility] Rx#:[id number] Ancef Inj 2,000 MG In NS Inj 80 100 / 100 100 / 100 ML @ 200 mls/hr IV.SIG Q8H [facility] Rx#:[id number] Oral 720 / 720 Anesthesia Amount 1650 / 1650 Output: Estimated Blood Loss 50 / 50 Other: # Voids 5 3 Date of Last Bowel Movement 06/18/18 06/18/18 # Bowel Movements 0 Narrative: OOB to chair, nad dressing c/d/i thigh soft neg homans nvi Results - Labs CBC & Chem 7: 06/21/18 04:54 06/21/18 04:54 Laboratory Results - last 24 hr 06/21/18 06/21/18 04:54 04:54 WBC 9.4 RBC 4.24 Hgb 13.2 Hct 40.4 MCV 95.2 MCH 31.1 MCHC 32.7 RDW 14.1 Plt Count 227 MPV 8.5 Neut % (Auto) 82.3 H Lymph % (Auto) 9.2 [place] % (Auto) 8.2 H Eos % (Auto) 0.1 Baso % (Auto) 0.2 Neut # (Auto) 7.8 H Lymph # (Auto) 0.9 L [place] # (Auto) 0.8 Eos # (Auto) 0.0 Baso # (Auto) 0.0 WBC Differential . Differential Comment Auto diff final Sodium 141 Potassium 3.8 Chloride 104 Carbon Dioxide 28.2 Anion Gap 9 BUN 9 Creatinine 0.75 Estimated GFR 78 L Random Glucose 105 Calcium 9.3 D Total Bilirubin 0.4 AST 12 L ALT 13 Alkaline Phosphatase 84 Total Protein 6.4 D Albumin 2.8 L D - Imaging ITS Impressions Chest X-Ray 06/19/18 12:57 CONCLUSION: 1. Mild interstitial prominence of unknown chronicity given lack of prior exams. 2. Otherwise, no acute abnormality. Hip X-Ray 06/20/18 00:00 CONCLUSION: Postoperative changes. - Procedures Left intertrochanteric femur fracture repair Assessment and Plan - Assessment (1) Closed intertrochanteric fracture of femur Code(s): S72.143A - Displaced intertrochanteric fracture of unspecified femur, initial encounter for closed fracture Status: Acute - Plan 62-year-old CM presents to emergency room after she sustained a fall, per imaging found to have a left femoral fracture 1. Left Femur Intertrochanteric Fracture Status post repair. She is stable continue postoperative care with PT, wound care, DVT prophylaxis with Lovenox, incentive spirometry and pain management. Counseled regarding narcotic 2. Osteoporosis Cont. Os-[place] BID 3. Tobacco Abuse Cessation counseling with risks 4. Hx of Alcohol Abuse Continue Thiamine and Multivitamin No signs of withdrawal Cont. to monitor CIWA protocol 5. DVT prophylaxis: SCD's and Lovenox 6. Dispo: Dc per ortho surgery t Discharge Planning: Per orthopedic surgery
[2018-06-21] MEDS: Enoxaparin Inj 40 MG/0.4 ML Syringe SQ SCH (12:05)
--- NOTE | 2018-06-21 13:41 | P.DCO ---
- Diagnosis (1) Closed intertrochanteric fracture of femur Status: Acute - Physical Therapy Order: Evaluate and treat, Improve ambulation, Strength and gait training - Case Management Consult Yes - Certification I have seen patient Pascale Amato on 06/21/18. My clinical findings support the need for the requested home health care services because: Deconditioned with increased weakness I certify that my clinical findings support that this patient is homebound because: Post-op weakness
--- NOTE | 2018-06-21 20:50 | XR ---
EXAM DATE: 06/21/2018 7:57 PM EDT AGE/SEX: 62 years / Female INDICATIONS: Pain in left hip. Post total hip replacement 1 day ago. CLINICAL DATA: This is the patient's subsequent encounter. Patient reports that signs and symptoms h ave been present for 4 - 6 days and indicates a pain score of 8/10. MEDICAL/SURGICAL HISTORY: None. . total hip replacement. COMPARISON: C, HIP LEFT W AP PELVIS 2V, 06/19/2018. . FINDINGS: There is adolfo fixation across an intratrochanteric fracture of the proximal left femur with anatomic a lignment. No complications identified. CONCLUSION: Adolfo fixation intertrochanteric fracture proximal left femur. Electronically signed by: Neal Shepard MD 06/21/2018 8:48 PM EDT
[2018-06-21] MEDS: Morphine Inj 4 MG/ML Vial IV.PUSH PRN (21:25)
[2018-06-22] MEDS: Morphine Inj 4 MG/ML Vial IV.PUSH PRN ×2 (04:40→08:09)
[2018-06-22 05:53] LABS: Hematocrit 40.3 % (35.0-46.0); Hemoglobin 13.3 gm/dL (11.6-15.3)
--- NOTE | 2018-06-22 08:22 | P.PN ---
Subjective Interval history: Follow-up hip surgery. PT recommended rehab per eval yesterday. Patient complaining of left inguinal pain with popping sensation x2 hip x-ray negative for acute injury. Physical Exam Vital signs: Vital Signs 06/21/18 12:00 06/21/18 16:00 06/21/18 20:00 Temperature 97.6 F 98.1 F 98.1 F Pulse Rate 83 93 H 80 Respiratory Rate 18 18 Blood Pressure 140/70 150/83 H 180/94 H Pulse Oximetry 100 98 97 06/22/18 00:00 06/22/18 04:00 06/22/18 08:03 Temperature 98.2 F 98.2 F 98.5 F Pulse Rate 78 84 94 H Respiratory Rate 18 Blood Pressure 173/91 H 139/93 H Pulse Oximetry 96 95 93 L Intake & Output 06/21/18 06/22/18 06/22/18 18:59 06:59 18:59 Intake Total 340 / 340 350 / 350 Output Total 1999 Balance -1660 / -1660 350 / 350 Weight 55.4 kg Intake: IV 100 / 100 Ancef Inj 2,000 MG In NS Inj 80 100 / 100 ML @ 200 mls/hr IV.SIG Q8H [facility] Rx#:[id number] Oral 240 / 240 350 / 350 Output: Urine 1999 Other: # Voids 2 Date of Last Bowel Movement 06/18/18 Narrative: OOB to chair, nad dressing c/d/i thigh soft neg homans nvi Results - Labs CBC & Chem 7: 06/22/18 05:22 06/21/18 04:54 Laboratory Results - last 24 hr 06/22/18 05:22 Hgb 13.3 Hct 40.3 - Imaging Impressions Hip X-Ray 06/21/18 19:57 CONCLUSION: Adolfo fixation intertrochanteric fracture proximal left femur. - Procedures Left intertrochanteric femur fracture repair Assessment and Plan - Assessment (1) Closed intertrochanteric fracture of femur Code(s): S72.143A - Displaced intertrochanteric fracture of unspecified femur, initial encounter for closed fracture Status: Acute - Plan 62-year-old CM presents to emergency room after she sustained a fall, per imaging found to have a left femoral fracture 1. Left Femur Intertrochanteric Fracture Status post repair. Patient complaining of constant left inguinal pain and has had to popping sensation. Consider repeating imaging study per orthopedic surgery. Continue postoperative care with PT, wound care, DVT prophylaxis with Lovenox, incentive spirometry and pain management. Counseled regarding narcotic 2. Osteoporosis Cont. Os-[place] BID 3. Tobacco Abuse Cessation counseling with risks 4. Hx of Alcohol Abuse Continue Thiamine and Multivitamin Cont. to monitor CIWA protocol 5. DVT prophylaxis: SCD's and Lovenox 6. Dispo: Dc per ortho surgery Discharge Planning: PT recommends rehab. Consult case management for placement
--- NOTE | 2018-06-22 10:55 | P.PNOP ---
Subjective Interval history: patient reports a popping sensation in the L groin region when trying to reposition in bed last night. increase in pain. did have xray previous to this which was negative. Physical Exam Vital signs: Vital Signs 06/21/18 12:00 06/21/18 16:00 06/21/18 20:00 Temperature 97.6 F 98.1 F 98.1 F Pulse Rate 83 93 H 80 Respiratory Rate 18 18 18 Blood Pressure 140/70 150/83 H 180/94 H Pulse Oximetry 100 98 97 06/22/18 00:00 06/22/18 04:00 06/22/18 08:03 Temperature 98.2 F 98.2 F 98.5 F Pulse Rate 78 84 94 H Respiratory Rate 16 18 Blood Pressure 173/91 H 139/93 H Pulse Oximetry 96 95 93 L 06/22/18 09:00 Temperature 98 F Pulse Rate 86 Respiratory Rate 16 Blood Pressure 157/99 H Pulse Oximetry 92 L Intake & Output 06/21/18 06/22/18 06/22/18 18:59 06:59 18:59 Intake Total 340 / 340 350 / 350 Output Total 1999 Balance -1660 / -1660 350 / 350 Weight 55.4 kg Intake: IV 100 / 100 Ancef Inj 2,000 MG In NS Inj 80 100 / 100 ML @ 200 mls/hr IV.SIG Q8H [facility] Rx#:[id number] Oral 240 / 240 350 / 350 Output: Urine 1999 Other: # Voids 2 Date of Last Bowel Movement 06/18/18 06/22/18 Narrative: in bed, nad pain with movement of LLE neg homans nvi Results - Labs CBC & Chem 7: 06/22/18 05:22 06/21/18 04:54 Laboratory Results - last 24 hr 06/22/18 05:22 Hgb 13.3 Hct 40.3 - Imaging Impressions Hip X-Ray 06/21/18 19:57 CONCLUSION: Adolfo fixation intertrochanteric fracture proximal left femur. - Procedures Left intertrochanteric femur fracture repair Assessment and Plan - Ortho Post Op Day # 2 - Assessment and Plan s/p L Troch Nail POD#1 50% PWB ok to maintain dressing unless saturated lovenox patient has had 2 episodes of popping sensation in the L groin. had negative xray after first episode. likely muscle strain. consider repeat xray before d/ c if symptoms do not improve. d/c planning home vs snf - currently patient not moving much and may need snf placement f/up dr. briones 2 weeks
[2018-06-22] MEDS: Senna/Docusate Sodium 8.6/50 MG Tablet PO SCH ×2 (12:01→23:45)
[2018-06-22] MEDS: Multivitamin/Minerals Therapeutic Tablet PO SCH (12:01)
[2018-06-22] MEDS: Calcium/Vitamin D 250/125 MG Tablet PO SCH ×2 (12:01→23:45)
[2018-06-22] MEDS: Enoxaparin Inj 40 MG/0.4 ML Syringe SQ SCH (12:02)
[2018-06-22] MEDS: Folic Acid 1 MG Tablet PO SCH (12:02)
--- NOTE | 2018-06-22 19:04 | XR ---
EXAM DATE: 06/22/2018 6:20 PM EDT AGE/SEX: 62 years / Female INDICATIONS: Pain Post-op CLINICAL DATA: This is the patient's subsequent encounter. Patient reports that signs and symptoms h ave been present for 4 - 6 days and indicates a pain score of 8/10. MEDICAL/SURGICAL HISTORY: None. . Total hip replacement, Left. [place] [facility] [place] . FINDINGS: Antegrade intramedullary natalia and trochanteric nail fixation left proximal femur noted. There is no di slocation. There is a small ossific fragment seen superomedial to the lesser trochanteric level, a ch jn from previous. There is subcutaneous air as expected given the postoperative state. Alignment is anatomic. CONCLUSION: Postoperative changes are seen. There is a small displaced lesser trochanteric ossific fragment noted as above. Electronically signed by: Alfredo Chawla MD 06/22/2018 7:03 PM EDT
[2018-06-23] MEDS: Morphine Inj 4 MG/ML Vial IV.PUSH PRN ×3 (01:44→20:53)
--- NOTE | 2018-06-23 08:13 | P.PNOP ---
Subjective Interval history: has pain with movement of L leg. xrays negative. Physical Exam Vital signs: Vital Signs 06/22/18 09:00 06/22/18 12:00 06/22/18 13:00 Temperature 98 F 97.9 F Pulse Rate 86 95 H 100 H Respiratory Rate 16 16 18 Blood Pressure 157/99 H 186/99 H 158/90 H Pulse Oximetry 92 L 88 L 06/22/18 16:00 06/22/18 18:00 06/22/18 20:00 Temperature 98.6 F 99.7 F H Pulse Rate 99 H 100 H 109 H Respiratory Rate 16 16 Blood Pressure 176/89 H 134/86 166/87 H Pulse Oximetry 93 L 94 L 06/23/18 00:00 06/23/18 01:30 06/23/18 04:00 Temperature 98.4 F 98.3 F Pulse Rate 104 H 89 Respiratory Rate 15 17 16 Blood Pressure 143/86 H 152/91 H Pulse Oximetry 94 L 94 L 06/23/18 08:00 Temperature 98.3 F Pulse Rate 92 H Respiratory Rate 17 Blood Pressure 152/75 H Pulse Oximetry 94 L Intake & Output 06/22/18 06/23/18 06/23/18 18:59 06:59 18:59 Weight 50 kg Other: Date of Last Bowel Movement 06/22/18 06/22/18 Narrative: in bed, nad dressing c/d/i neg guillermo sweeti Results - Labs CBC & Chem 7: 06/22/18 05:22 06/21/18 04:54 - Imaging Impressions Hip X-Ray 06/22/18 18:20 CONCLUSION: Postoperative changes are seen. There is a small displaced lesser trochanteric ossific fragment noted as above. - Procedures Left intertrochanteric femur fracture repair Assessment and Plan - Ortho Post Op Day # 3 - Assessment and Plan s/p L Troch Nail POD#1 50% PWB ok to maintain dressing unless saturated lovenox patient has had 2 episodes of popping sensation in the L groin. xrays negative. likely muscle strain. d/c planning snf ortho stable for d/c when arrangements in place f/up dr. briones 2 weeks
--- NOTE | 2018-06-23 08:38 | P.PN ---
Subjective Interval history: Follow-up left femur surgery. Today she is better in good spirits. She has less pain and ambulating in the room with walker. PT assisting. Physical Exam Vital signs: Vital Signs 06/22/18 09:00 06/22/18 12:00 06/22/18 13:00 Temperature 98 F 97.9 F Pulse Rate 86 95 H 100 H Respiratory Rate 16 16 18 Blood Pressure 157/99 H 186/99 H 158/90 H Pulse Oximetry 92 L 88 L 06/22/18 16:00 06/22/18 18:00 06/22/18 20:00 Temperature 98.6 F 99.7 F H Pulse Rate 99 H 100 H 109 H Respiratory Rate 16 16 Blood Pressure 176/89 H 134/86 166/87 H Pulse Oximetry 93 L 94 L 06/23/18 00:00 06/23/18 01:30 06/23/18 04:00 Temperature 98.4 F 98.3 F Pulse Rate 104 H 89 Respiratory Rate 15 17 16 Blood Pressure 143/86 H 152/91 H Pulse Oximetry 94 L 94 L 06/23/18 08:00 Temperature 98.3 F Pulse Rate 92 H Respiratory Rate 17 Blood Pressure 152/75 H Pulse Oximetry 94 L Intake & Output 06/22/18 06/23/18 06/23/18 18:59 06:59 18:59 Weight 50 kg Other: Date of Last Bowel Movement 06/22/18 06/22/18 Narrative: GENERAL: Well-nourished female, in NAD SKIN: Warm and dry. CARDIOVASCULAR: Regular rate and rhythm without murmurs, gallops, or rubs. RESPIRATORY: CTA x2 GASTROINTESTINAL: Abdomen soft, non-tender, nondistended. MUSCULOSKELETAL: No cyanosis, or edema. BACK: Nontender without obvious deformity. No CVA tenderness. NEURO: No focal deficits Results - Labs CBC & Chem 7: 06/22/18 05:22 06/21/18 04:54 - Imaging Impressions Hip X-Ray 06/22/18 18:20 CONCLUSION: Postoperative changes are seen. There is a small displaced lesser trochanteric ossific fragment noted as above. - Procedures Left intertrochanteric femur fracture repair Assessment and Plan - Assessment (1) Closed intertrochanteric fracture of femur Code(s): S72.143A - Displaced intertrochanteric fracture of unspecified femur, initial encounter for closed fracture Status: Acute - Plan 62-year-old CM presents to emergency room after she sustained a fall, per imaging found to have a left femoral fracture 1. Left Femur Intertrochanteric Fracture Status post repair. Patient complained of constant left inguinal pain and has had two popping sensation. X-ray negative. Per orthopedics this is secondary to strain . Today she is clinically better. Continue postoperative care with PT, wound care, DVT prophylaxis with Lovenox, incentive spirometry and pain management. Counseled regarding narcotic. Follow-up pelvic CT Progressing with PT. Insurance with no rehab benefits. Request DME's front wheeled walker and bedside commode 2. Osteoporosis Cont. Os-[place] BID 3. Tobacco Abuse Cessation counseling with risks 4. Hx of Alcohol Abuse Continue Thiamine and Multivitamin Cont. to monitor CIWA protocol 5. DVT prophylaxis: SCD's and Lovenox 6. Dispo: Cleared for discharge by orthopedic surgery when rehab arranged or home care if patient improves Discharge Planning: PT recommends rehab. Consult case management for placement. Eforcse queried
[2018-06-23] MEDS: Multivitamin/Minerals Therapeutic Tablet PO SCH (08:41)
[2018-06-23] MEDS: Senna/Docusate Sodium 8.6/50 MG Tablet PO SCH ×2 (08:42→20:54)
[2018-06-23] MEDS: Folic Acid 1 MG Tablet PO SCH (08:42)
[2018-06-23] MEDS: Enoxaparin Inj 40 MG/0.4 ML Syringe SQ SCH (12:44)
[2018-06-23] MEDS: Calcium/Vitamin D 250/125 MG Tablet PO SCH ×2 (12:44→20:54)
--- NOTE | 2018-06-23 14:36 | CT ---
EXAM DATE: 06/23/2018 12:52 PM EDT AGE/SEX: 62 years / Female INDICATIONS: Post op pelvic pain. CLINICAL DATA: This is the patient's initial encounter. Patient reports that signs and symptoms have been present for 1 day and indicates a pain score of 8/10. MEDICAL/SURGICAL HISTORY: Osteoporosis. . Pelvic surgery. RADIATION DOSE: 7.46 CTDI (mGy) COMPARISON: No prior exams available for comparison. TECHNIQUE: Multiple contiguous axial images were obtained through the pelvis without contrast. Imag es were obtained using multiple row detector helical technique. . Using automated exposure control an d adjustment of the mA and/or kV according to patient size, radiation dose was kept as low as reasona kathrin achievable to obtain optimal diagnostic quality images. DICOM format image data is available chun ctronically for review and comparison. FINDINGS: There has been pinning of a left hip intertrochanteric fracture. The hardware appears intact. Alignme nt is anatomic. The adjacent pelvis is intact and unremarkable. Mild degenerative change in the contr alateral right hip. No evidence of sacrococcygeal or other pelvic fracture. The soft tissue elements of pelvis are unremarkable. Bowel, bladder and reproductive structures are b enign. Mild atherosclerotic changes. No evidence of pelvic mass, collection or lymphadenopathy. CONCLUSION: 1. Satisfactory appearance post pinning of the left hip. 2. No other acute findings. Electronically signed by: Salazar Valenzuela MD 06/23/2018 2:34 PM EDT
--- NOTE | 2018-06-24 08:28 | P.PN ---
Subjective Interval history: Follow-up femur fracture. She is doing good ambulated with physical therapy. She wants to go home. Seen with . Physical Exam Vital signs: Vital Signs 06/23/18 12:00 06/23/18 16:00 06/23/18 17:58 Temperature 98.2 F 98.5 F Pulse Rate 111 H 93 H Respiratory Rate 18 Blood Pressure 140/91 H 123/69 Pulse Oximetry 95 97 06/23/18 20:00 06/24/18 00:00 06/24/18 04:00 Temperature 98.2 F 98.7 F 98.1 F Pulse Rate 96 H 85 94 H Respiratory Rate 17 Blood Pressure 126/74 163/85 H 143/82 H Pulse Oximetry 93 L 96 99 Intake & Output 06/23/18 06/24/18 06/24/18 18:59 06:59 18:59 Intake Total 800 / 800 Balance 800 / 800 Weight 49.9 kg Intake: Oral 800 / 800 Other: # Voids 5 2 Date of Last Bowel Movement 06/22/18 # Bowel Movements 1 Narrative: GENERAL: Well-nourished female, in NAD SKIN: Warm and dry. CARDIOVASCULAR: Regular rate and rhythm without murmurs, gallops, or rubs. RESPIRATORY: CTA x2 GASTROINTESTINAL: Abdomen soft, non-tender, nondistended. MUSCULOSKELETAL: No cyanosis, or edema. BACK: Nontender without obvious deformity. No CVA tenderness. Results - Labs CBC & Chem 7: 06/22/18 05:22 06/21/18 04:54 - Imaging Impressions Pelvis CT 06/23/18 10:52 CONCLUSION: 1. Satisfactory appearance post pinning of the left hip. 2. No other acute findings. - Procedures Left intertrochanteric femur fracture repair Assessment and Plan - Assessment (1) Closed intertrochanteric fracture of femur Code(s): S72.143A - Displaced intertrochanteric fracture of unspecified femur, initial encounter for closed fracture Status: Acute - Plan 62-year-old CM presents to emergency room after she sustained a fall, per imaging found to have a left femoral fracture 1. Left Femur Intertrochanteric Fracture Status post repair. Patient complained of constant left inguinal pain and has had two popping sensation. X-ray and pelvic CT negative. Per orthopedics this is secondary to strain . She is clinically better, progressing with physical. Continue postoperative care with PT, wound care, DVT prophylaxis with Lovenox, incentive spirometry and pain management. Counseled regarding narcotic. Insurance with no rehab benefits. Requested DME's front wheeled walker and bedside commode 2. Osteoporosis Cont. Os-[place] BID 3. Tobacco Abuse Cessation counseling with risks 4. Hx of Alcohol Abuse Continue Thiamine and Multivitamin Cont. to monitor CIWA protocol 5. DVT prophylaxis: SCD's and Lovenox 6. Dispo: Cleared for discharge by orthopedic surgery when rehab arranged or home care if patient improves Discharge Planning: Consult case management for safe dc. Eforcse queried
[2018-06-24] MEDS: Calcium/Vitamin D 250/125 MG Tablet PO SCH (09:13)
[2018-06-24] MEDS: Senna/Docusate Sodium 8.6/50 MG Tablet PO SCH (09:13)
[2018-06-24] MEDS: Folic Acid 1 MG Tablet PO SCH (09:13)
[2018-06-24] MEDS: Multivitamin/Minerals Therapeutic Tablet PO SCH (09:13)
[2018-06-24 09:28] VITALS: RESP 18
[2018-06-24] MEDS: Enoxaparin Inj 40 MG/0.4 ML Syringe SQ SCH (11:40)
[2018-06-24 12:53] VITALS: BP 140/82; PULSE 93; TEMP 98.5; O2SAT 95
--- NOTE | 2018-06-24 15:59 | P.DS ---
Date of admission: 06/19/18 15:00 Primary care physician: No Primary Care Physician Brief History from admission: 62 year old white female with no significant past medical history presents to the ED with left groin pain with inability to ambulate after she sustained a mechanical fall after tripping outside on a rug while going outside to smoke a cigarette yesterday. She did not hit her head or lose consciousness and fell to her left side. Since the fall, she has not been able to ambulate and has had severe left groan pain. Prior to the fall, she has no previous complaints. She has no symptoms of chest pain or shortness of breath. She had no history of constipation or any blood in her stools. She has been relatively healthy up to this point. DS: Diagnosis - Discharge Diagnosis (1) Closed intertrochanteric fracture of femur Status: Acute DS: Medications - Discharge Medications Prescriptions: enoxaparin [Lovenox] 40 mg SUBCUT Q24H #10 ml hydrocodone-acetaminophen 1 tab PO Q6H PRN #12 tab PRN Reason: Acute Pain thiamine HCl (vitamin B1) 100 mg PO DAILY #30 tab DS: Summary Hospital Course: 62-year-old CM presents to emergency room after she sustained a fall, per imaging found to have a left femoral fracture 1. Left Femur Intertrochanteric Fracture Status post repair. Patient complained of constant left inguinal pain and has had two popping sensation. X-ray and pelvic CT negative. Per orthopedics this is secondary to strain . She is clinically better, progressing with physical. Continue postoperative care with PT, wound care, DVT prophylaxis with Lovenox, incentive spirometry and pain management. Counseled regarding narcotic. Insurance with no rehab benefits. Requested DME's front wheeled walker and bedside commode 2. Osteoporosis Cont. Os-[place] BID 3. Tobacco Abuse Cessation counseling with risks 4. Hx of Alcohol Abuse Continue Thiamine and Multivitamin Cont. to monitor CIWA protocol 5. DVT prophylaxis: SCD's and Lovenox 6. Dispo: Cleared for discharge by orthopedic surgery when rehab arranged or home care if patient improves - Time Spent with Patient Total time spent providing and/or coordinating discharge services: Greater than 30 minutes - Quality: VTE Deep Vein Thrombosis/Pulmonary Embolism Present on Admission: No Exam Vital signs: Vital Signs 06/23/18 16:00 06/23/18 17:58 06/23/18 20:00 Temperature 98.5 F 98.2 F Pulse Rate 93 H 96 H Respiratory Rate 18 18 16 Blood Pressure 123/69 126/74 Pulse Oximetry 97 93 L 06/24/18 00:00 06/24/18 04:00 06/24/18 08:00 Temperature 98.7 F 98.1 F 98.4 F Pulse Rate 85 94 H 92 H Respiratory Rate 17 17 18 Blood Pressure 163/85 H 143/82 H 149/81 H Pulse Oximetry 96 99 97 06/24/18 09:27 06/24/18 12:00 Temperature 98.5 F Pulse Rate 93 H Respiratory Rate 18 18 Blood Pressure 140/82 Pulse Oximetry 95 Intake & Output 06/23/18 06/24/18 06/24/18 18:59 06:59 18:59 Intake Total 800 / 800 Balance 800 / 800 Weight 49.9 kg Intake: Oral 800 / 800 Other: # Voids 5 2 Date of Last Bowel Movement 06/22/18 # Bowel Movements 1 Narrative: GENERAL: Well-nourished female, in NAD SKIN: Warm and dry. CARDIOVASCULAR: Regular rate and rhythm without murmurs, gallops, or rubs. RESPIRATORY: CTA x2 GASTROINTESTINAL: Abdomen soft, non-tender, nondistended. MUSCULOSKELETAL: No cyanosis, or edema. BACK: Nontender without obvious deformity. No CVA tenderness. Results Procedures completed during hospitalization: Left intertrochanteric femur fracture repair - Impressions ITS Impressions Chest X-Ray 06/19/18 12:57 CONCLUSION: 1. Mild interstitial prominence of unknown chronicity given lack of prior exams. 2. Otherwise, no acute abnormality. Hip X-Ray 06/22/18 18:20 CONCLUSION: Postoperative changes are seen. There is a small displaced lesser trochanteric ossific fragment noted as above. Pelvis CT 06/23/18 10:52 CONCLUSION: 1. Satisfactory appearance post pinning of the left hip. 2. No other acute findings. Discharge Plan - Discharge Disposition Patient Disposition: W/Home Health Service - Discharge Condition Condition: Stable - Discharge Order Discharge Orders: Discharge Order (Routine); Ordered 06/23/18 Ordered By: Rob Mauricio - Physicians Team Primary Care Provider: Primary Care Nina,Soc[place] Attending Provider: Rob Mauricio Other Providers: Beronica Michaels MD
== END 2018-06-24 17:25 | disposition home health service (06) ==
LOC: NEPE 12:49 → NEDA 15:00 → N06 16:23
PROVIDERS: ADMIT Internal Medicine; ATTEND Internal Medicine